=== PATIENT | female | born 1970 | race African-American/Black ===

== ENCOUNTER 2024-04-21 14:25 | Emergency (ER) | payer SELFPAY ==
[~2024-04-21] VITALS: Ht 165.1 cm; Wt 90.2 kg
--- NOTE | 2024-04-21 16:10 | DVH ---
EXAM: US PELVIC CLINICAL HISTORY: sent from for possible tampone x 10 days. TECHNIQUE: Transabdominal ultrasound of the pelvis with color Doppler flow as clinically indicated. COMPARISON: None Findings: Same-day quantitative beta-hCG is not available. Uterus measures 9.5 x 6.4 x 5.9 cm in size with relatively homogeneous echotexture and normal contour s. There is a 1.9 x 1.6 x 1.9 cm round, hypoechoic lesion in the uterine fundus. Endometrial thickness measures 0.8 cm with smooth contour. Cervix appears grossly unremarkable. Bilateral ovaries not visualized. Trace free fluid in the cul-de-sac. No visualized foreign bodies. Impression: 1. Myomatous uterus grossly unremarkable with endometrial thickness of 0.8 cm. If patient is postmeno pausal, consider endometrial tissue sampling for further evaluation. 2. Bilateral ovaries not visualized. 3. Trace free fluid in the cul de sac, nonspecific.
[2024-04-21 17:02] VITALS: BP 160/88; PULSE 68; RESP 18; TEMP 98.2; O2SAT 100
[2024-04-21 17:09] LABS: Basophils # (auto) 0 10 ^3/uL (0-0.2); Basophils % (auto) 0.5 % (0.0-2.0); Eosinophils # (auto) 0 10 ^3/uL (0-0.8); Eosinophils % (auto) 0.5 % (0.0-7.0); Hematocrit 34.2 % (36.0-46.0); Hemoglobin 11.5 g/dL (12.2-16.2); Lymphocytes # (auto) 2.5 10 ^3/uL (0.4-5.4); Lymphocytes % (auto) 37.7 % (10.0-50.0); Mean Corpuscular Hemoglobin 28.3 pg (28.0-32.0); Mean Corpuscular Hgb Conc. 33.7 g/dL (32.0-36.0); Monocytes # (auto) 0.6 10 ^3/uL (0-1.3); Monocytes % (auto) 8.6 % (0.0-12.0); Neutrophils # (auto) 3.5 10 ^3/uL (1.6-8.6); Neutrophils % (auto) 52.7 % (37.0-80.0); Nucleated Red Blood Cells % 0.1 %; Platelet Count (auto) 274 10^3/uL (140-450); Red Blood Cells 4.08 10^6/uL (4.0-5.20); Red Cell Distribution Width 12.9 % (11.8-14.3); White Blood Cell 6.6 10^3/uL (4.4-10.8)
--- NOTE | 2024-04-21 17:19 | ED.PDOC ---
General HPI Comments 53-year-old female presents for a possible tampon in the vaginal canal. Onset 10 days ago Was seen at urgent care today and was referred to ED for higher level of care No other complaint or concern Denies back pain abdominal pain flank pain dysuria urgency frequency LMP: 2 weeks ago Chief Complaint: Foreign Body Time Seen by MD: 16:23 Primary Care Provider: JUAQUIN Cheatham notes: Nurses Notes, Medications, Allergies Allergies: Coded Allergies: NO KNOWN ALLERGIES (Unverified , 04/21/24) Home Meds Active Scripts Metronidazole Vaginal (Metronidazole Vaginal) 0.75 % Gel, 1 APPLIC VG QPM for 7 Days, #70 GRAMS 30 Refills Prov:GIAN LUNA ANTISQUEAK CHALKER 04/21/24 Information Source: Patient Mode of Arrival: Ambulatory Past Medical History PAST MEDICAL HISTORY: Denies Surgical History: Denies all surgeries EDITOR INDEX History: No Pertinent EDITOR INDEX History Family History Family History: Reviewed,noncontributory to illness Social History Smoker: Non-Smoker Alcohol: Denies ETOH Use Drugs: Denies Drug Use All Other Systems: Reviewed and Negative (Per HPI) Physical Exam General Appearance: No Apparent Distress, Normal HEENT: Normal ENT Inspection, Pharynx Normal, TMs Normal Neck: Full Range of Motion, Non-Tender, Normal, Normal Inspection Respiratory: Chest Non-Tender, Lungs Clear, No Accessory Muscle Use, No Respiratory Distress, Normal Breath Sounds Cardiovascular: No Edema, No JVD, No Murmur, No Gallop, Normal Peripheral Pulses, Regular Rate/Rhythm Breast Exam: Deferred Gastrointestinal: No Organomegaly, Non Tender, No Pulsatile Mass, Normal Bowel Sounds, Soft Genitalia: Deferred Pelvic: No Masses (Pelvic exam normal. Matcher Operator in the room. luis a) Rectal: Deferred Extremities: No calf tenderness, Normal capillary refill, Normal inspection, Normal range of motion, Non-tender, No pedal edema Musculoskeletal : Apperance: Normal Neurologic: Alert, brand inspector II-XII nml as Tested, No Motor Deficits, Normal Affect, Normal Mood, No Sensory Deficits Cerebellar Function: Normal Reflexes: Normal Skin: Dry, Normal Color, Warm Lymphatic: No Adenopathy Was a procedure done? Was a procedure done?: Yes Sedation Sedation?: No Pelvic Exam Vaginal Discharge: White, Other (No FB) Vaginal Lesions: None Vaginal Mass: None Cervix: os closed Differential Diagnosis Kidney stone (Female): Other Urinary Problem (Female): PID, Urolithiasis, UTI, Vaginitis X-Ray, Labs, Meds, VS Vital Signs Date Time Temp Pulse Resp B/P (MAP) Pulse Ox O2 Delivery O2 Flow Rate FiO2 04/21/24 17:02 68 18 100 Room Air 04/21/24 17:02 98.2 68 18 160/88 (112) 100 98.2 04/21/24 14:40 98.2 68 18 160/88 (112) 100 Lab Test 04/21/24 17:16 04/21/24 16:35 Range/Units Vaginal WBC (Wet Prep) Few Vaginal RBC (Wet Prep) Few Vaginal Epithelial Cells (Wet Prep) Few Vaginal Bacteria (Wet Prep) Moderate Vaginal Trichomonas (Wet Prep) Not present Vaginal Yeast (Wet Prep) None seen Vaginal Clue Cells (Wet Prep) Few White Blood Count 6.6 4.4-10.8 10^3/uL Red Blood Count 4.08 4.0-5.20 10^6/uL Hemoglobin 11.5 L 12.2-16.2 g/dL Hematocrit 34.2 L 36.0-46.0 % Mean Corpuscular Volume 84.0 80.0-100.0 fL Mean Corpuscular Hemoglobin 28.3 28.0-32.0 pg Mean Corpuscular Hemoglobin Concent 33.7 32.0-36.0 g/dL Red Cell Distribution Width 12.9 11.8-14.3 % Platelet Count 274 140-450 10^3/uL Mean Platelet Volume 8.4 6.9-10.8 fL Neutrophils (%) (Auto) 52.7 37.0-80.0 % Lymphocytes (%) (Auto) 37.7 10.0-50.0 % Monocytes (%) (Auto) 8.6 0.0-12.0 % Eosinophils (%) (Auto) 0.5 0.0-7.0 % Basophils (%) (Auto) 0.5 0.0-2.0 % Neutrophils # (Auto) 3.5 1.6-8.6 10 ^3/uL Lymphocytes # (Auto) 2.5 0.4-5.4 10 ^3/uL Monocytes # (Auto) 0.6 0-1.3 10 ^3/uL Eosinophils # (Auto) 0 0-0.8 10 ^3/uL Basophils # (Auto) 0 0-0.2 10 ^3/uL Nucleated Red Blood Cells 0.1 % Sodium Level 141 136-145 mmol/L Potassium Level 3.5 3.5-5.1 mmol/L Chloride Level 108 H 98-107 mmol/L Carbon Dioxide Level 28 20-31 mmol/L Anion Gap 5 5-15 Blood Urea Nitrogen 7 L 9-23 mg/dL Creatinine 0.87 0.550-1.02 mg/dL Glomerular Filtration Rate Calc 80 >90 mL/min BUN/Creatinine Ratio 8.0 L 10.0-20.0 Serum Glucose 93 74-106 mg/dL Calcium Level 10.0 8.7-10.4 mg/dL PATIENT: SUNDAY CHRISTIANSONT: [id number]: [id number] : 1970 LOC: ER ROOM / BED: / AGE / SEX: 53 / F ADM STATUS: REG ER SERVICE [id number] ORDERING PHYSICIAN: GIAN LUNA NP PROCEDURE(s): PELUS - PELVIC REASON: sent from for possible tampone x 10 days. ORDER NUMBER(s): [id number], ACCESSION NUMBER(s): [id number] EXAM: US PELVIC CLINICAL HISTORY: sent from for possible tampone x 10 days. TECHNIQUE: Transabdominal ultrasound of the pelvis with color Doppler flow as clinically indicated. COMPARISON: None Findings: Same-day quantitative beta-hCG is not available. Uterus measures 9.5 x 6.4 x 5.9 cm in size with relatively homogeneous echotexture and normal contours. There is a 1.9 x 1.6 x 1.9 cm round, hypoechoic lesion in the uterine fundus. Endometrial thickness measures 0.8 cm with smooth contour. Cervix appears grossly unremarkable. Bilateral ovaries not visualized. Trace free fluid in the cul-de-sac. No visualized foreign bodies. Impression: 1. Myomatous uterus grossly unremarkable with endometrial thickness of 0.8 cm. If patient is postmenopausal, consider endometrial tissue sampling for further evaluation. 2. Bilateral ovaries not visualized. 3. Trace free fluid in the cul de sac, nonspecific. ATED BY: BEVERLEY PEREZ DO DICTATED DATE/TIME: 04/21/24 7091 SIGNED BY: BEVERLEY PEREZ DO SIGNED DATE/TIME: 04/21/24 1608 CC: X-Ray, Labs, Meds, VS Comment ROS physical examination imaging and labs were ordered to rule out serious pathology. Pelvic ultrasound shows 1. Myomatous uterus grossly unremarkable with endometrial thickness of 0.8 cm. If patient is postmenopausal, consider endometrial tissue sampling for further evaluation. 2. Bilateral ovaries not visualized. 3. Trace free fluid in the cul de sac, nonspecific. Patient still has monthly menstrual cycles thus it was advised she follow up with her PCP and Ob for continuity of care Copy of ultrasound was provided Wet mount shows BV positive. Medication Rx. On reevaluation, patient had symptomatic improvement. Patient is stable for discharge at this time. External notes reviewed. Test results and diagnostic imaging interpreted. All diagnostic findings, discharge care, education and instructions provided Follow-up with PCP in 2 to 3 days Patient verbalized understanding and agreed to treatment plan Vital signs stable, afebrile, no acute distress noted Patient ambulatory with strong steady gait Advised to return precautions for any new or worsening symptoms, return to ER immediately for re-evaluation Patient is aware that the purpose of this visit was for an acute medical emergency requiring emergent stabilization. Chronic conditions, including malignancies have not been ruled out. Patient is instructed to follow up with PCP as directed and discharge instructions for continued care and workup. If unable to arrange follow-up, patient is to return to the emergency department for reassessment. Patient (parent or legal guardian if applicable) was given verbal and written discharge instructions and acknowledges understanding. Time of 1ST Reevaluation: 17:16 Reevaluation 1ST: Improved Patient Education/Counseling: Diagnosis, Treatment Family Education/Counseling: Diagnosis, Treatment Departure 1 Departure Time of Disposition: 18:06 Impression: Primary Impression: Vaginal foreign body Qualified Codes: T19.2XXA - Foreign body in vulva and vagina, initial encounter Additional Impression: Bacterial vaginosis Disposition: HOME / SELF CARE / HOMELESS Condition: Stable e-Prescriptions Metronidazole Vaginal (Metronidazole Vaginal) 0.75 % Gel 1 APPLIC VG QPM for 7 Days, #70 GRAMS 30 Refills Prov: GIAN LUNA NP 04/21/24 Discharged With: Self Critical Care Note Critical Care Time?: No Stability Stability form required: No Heart Score Heart Score: Heart Score Response (Comments) Value History N/A 0 EKG N/A 0 Age N/A 0 Risk Factors N/A 0 Troponin N/A 0 Total 0 GIAN LUNA NP Apr 21, 2024 17:19
[2024-04-21 17:23] LABS: Chloride 108 mmol/L (98-107); Potassium 3.5 mmol/L (3.5-5.1); Sodium 141 mmol/L (136-145)
[2024-04-21 17:24] LABS: Anion Gap 5 (5-15); Carbon Dioxide 28 mmol/L (20-31)
[2024-04-21 17:29] LABS: Blood Urea Nitrogen 7 mg/dL (9-23); Glucose 93 mg/dL (74-106)
[2024-04-21 17:44] LABS: Vaginal Bacteria Moderate; Vaginal Clue Cells Few; Vaginal Epithelial Cells Few; Vaginal Trichomonas Not Present
[2024-04-21] MEDS ORDERED: METR0.7511 VG (18:07)
== END 2024-04-21 18:18 | disposition home or self-care (01) ==
LOC: ER 14:25
DX: T19.2XXA Foreign body in vulva and vagina, initial encounter (principal); B96.89 Other specified bacterial agents as the cause of diseases classified elsewhere; Z79.899 Other long term (current) drug therapy; X58.XXXA Exposure to other specified factors, initial encounter; Y93.89 Activity, other specified; Y92.89 Other specified places as the place of occurrence of the external cause; Y99.8 Other external cause status
CPT/HCPCS: 36415; 76856; 80048; 85025; 87210

== ENCOUNTER 2024-09-10 07:25 | Emergency (ER) | payer MEDICAID ==
[~2024-09-10] VITALS: Ht 165.1 cm; Wt 88.4 kg
[~2024-09-10 07:25] MED LIST: METR0.7511 VG
[2024-09-10 07:41] VITALS: TEMP 97.9
[2024-09-10] MEDS: cloNIDine HCL 0.1 MG TAB PO ONE (07:58)
[2024-09-10 08:03] VITALS: PULSE 84; RESP 16; O2SAT 98
--- NOTE | 2024-09-10 08:14 | ED.PDOC ---
History of Present Illness HPI Comments 54F presents to the ER w/ her 2 underage daughters and w/ prior Hx of x3 and Cholecystectomy which all may be associated to the c/c of ABD pain. Pt reports on having ABD pain and back pain for 3 days w/ /D. Pt notes the ABD pain being in the epigastric region. Pt's BP in triage was 178/107 and states that she has been in a lot of stress. PMHx of HTN. SHx of Cyst Removal. Denies chills, fever, N/V, SOB, CP no other associated symptoms, modifiers, recent injuries or sick contacts at this time. Chief Complaint: Abdominal Pain Time Seen by MD: 07:55 Primary Care Provider: JUAQUIN Cheatham Notes: Nurses Notes, Medications, Allergies Allergies: Coded Allergies: NO KNOWN ALLERGIES (Unverified , 04/21/24) Home Meds Active Scripts Metronidazole Vaginal (Metronidazole Vaginal) 0.75 % Gel, 1 APPLIC VG QPM for 7 Days, #70 GRAMS 30 Refills Prov:GIAN LUNA ROTARY DRIER 04/21/24 Information Source: Patient Mode of Arrival: Ambulatory Severity: Moderate Timing: Days Duration: Since onset Prehospital treatment: None Past Medical History PAST MEDICAL HISTORY: HTN Surgical History: Cholecystectomy, (x3) Surgical History (Other): Cyst Removal Sx MATE SHIP History: No Pertinent MATE SHIP History Family History Family History: Reviewed,noncontributory to illness, Unknown Social History Smoker: Non-Smoker Alcohol: Denies ETOH Use Drugs: Denies Drug Use Lives In: Home Constitutional: denies: chills, diaphoresis, fatigue, fever, malaise, sweats, weakness, others EENTM: denies: blurred vision, double vision, ear bleeding, ear discharge, ear drainage, ear pain, ear ringing, eye pain, eye redness, hearing loss, mouth pain, mouth swelling, nasal discharge, nose bleeding, nose congestion, nose pain, photophobia, tearing, throat pain, throat swelling, voice changes, others Respiratory: denies: cough, hemoptysis, orthopnea, SOB at rest, shortness of breath, SOB with excertion, stridor, wheezing, others Cardiovascular: denies: chest pain, dizzy spells, diaphoresis, Dyspnea on exertion, edema, irregular heart beat, left arm pain, lightheadedness, palpitations, PND, syncope, others Gastrointestinal: reports: abdominal pain, diarrhea; denies: abdomen distended, blood streaked bowels, constipated, dysphagia, difficulty swallowing, hematemesis, melena, nausea, poor appetite, poor fluid intake, rectal bleeding, rectal pain, vomiting, others Genitourinary: denies: abnormal vagina bleeding, burning, dyspareunia, dysuria, flank pain, frequency, hematuria, incontinence, pain, , vagina discharge, urgency, others Neurological: denies: dizziness, fainting, headache, left sided numbness, left sided weakness, numbness, paresthesia, pre-existing deficit, right sided numbn ess, right sided weakness, seizure, speech problems, tingling, tremors, weakness, others Musculoskeletal: reports: back pain; denies: gout, joint pain, joint swelling, muscle pain, muscle stiffness, neck pain, others Integumetry: denies: bruises, change in color, change in hair/nails, dryness, laceration, lesions, lumps, rash, wounds, others Allergic/Immunocompromised: denies: Difficulty Healing, Frequent Infections, Hives, Itching, others Hematologic/Lymphatic: denies: anemia, blood clots, easy bleeding, easy bruising, swollen glands, others Endocrine: denies: excessive hunger, excessive sweating, excessive thirst, excessive urination, flushing, intolerance to cold, intolerance to heat, unexplained weight gain, unexplained weight loss, others Psychiatric: denies: anxiety, bipolar disorder, depression, hopeless, panic disorder, schizophrenia, sleepless, suicidal, others All Other Systems: Reviewed and Negative Physical Exam General Appearance: Moderate Distress, Normal HEENT: Normal ENT Inspection, Pharynx Normal, TMs Normal Neck: Full Range of Motion, Non-Tender, Normal, Normal Inspection Respiratory: Chest Non-Tender, Lungs Clear, No Accessory Muscle Use, No Respiratory Distress, Normal Breath Sounds Cardiovascular: No Edema, No JVD, No Murmur, No Gallop, Normal Peripheral Pulses, Regular Rate/Rhythm Breast Exam: Deferred Gastrointestinal: No Organomegaly, Non Tender, No Pulsatile Mass, Normal Bowel Sounds, Soft Genitalia: Deferred Pelvic: Deferred Rectal: Deferred Extremities: No calf tenderness, Normal capillary refill, Normal inspection, Normal range of motion, Non-tender, No pedal edema Musculoskeletal : Apperance: Normal Neurologic: Alert, floral merchandiser II-XII nml as Tested, No Motor Deficits, Normal Affect, Normal Mood, No Sensory Deficits Cerebellar Function: Normal Reflexes: Normal Skin: Dry, Normal Color, Warm Peripheral Pulses: 3+ Radial (R), 3+ Radial (L) Lymphatic: No Adenopathy Was a procedure done? Was a procedure done?: No Differential Dx Considerations may include: Anemia Electrolyte imbalance X-Ray, Labs, Meds, VS Vital Signs Date Time Temp Pulse Resp B/P (MAP) Pulse Ox O2 Delivery O2 Flow Rate FiO2 09/10/24 09:05 77 15 118/74 (89) 99 09/10/24 09:05 118/74 09/10/24 08:03 84 16 98 Room Air* 0 21 09/10/24 07:58 183/109 09/10/24 07:43 61 09/10/24 07:41 97.9 75 20 178/107 (130) 99 97.9 Lab Test 09/10/24 08:22 09/10/24 08:00 Range/Units White Blood Count 4.4 4.4-10.8 10^3/uL Red Blood Count 4.39 4.0-5.20 10^6/uL Hemoglobin 11.6 L 12.2-16.2 g/dL Hematocrit 35.4 L 36.0-46.0 % Mean Corpuscular Volume 80.8 80.0-100.0 fL Mean Corpuscular Hemoglobin 26.4 L 28.0-32.0 pg Mean Corpuscular Hemoglobin Concent 32.7 32.0-36.0 g/dL Red Cell Distribution Width 15.8 H 11.8-14.3 % Platelet Count 281 140-450 10^3/uL Mean Platelet Volume 8.3 6.9-10.8 fL Neutrophils (%) (Auto) 58.2 37.0-80.0 % Lymphocytes (%) (Auto) 34.1 10.0-50.0 % Monocytes (%) (Auto) 7.0 0.0-12.0 % Eosinophils (%) (Auto) 0.3 0.0-7.0 % Basophils (%) (Auto) 0.4 0.0-2.0 % Neutrophils # (Auto) 2.6 1.6-8.6 10 ^3/uL Lymphocytes # (Auto) 1.5 0.4-5.4 10 ^3/uL Monocytes # (Auto) 0.3 0-1.3 10 ^3/uL Eosinophils # (Auto) 0 0-0.8 10 ^3/uL Basophils # (Auto) 0 0-0.2 10 ^3/uL Nucleated Red Blood Cells 0.0 % Sodium Level 141 136-145 mmol/L Potassium Level 3.6 3.5-5.1 mmol/L Chloride Level 107 98-107 mmol/L Carbon Dioxide Level 29 20-31 mmol/L Anion Gap 5 5-15 Blood Urea Nitrogen 10 9-23 mg/dL Creatinine 0.81 0.550-1.02 mg/dL Glomerular Filtration Rate Calc 87 >90 mL/min BUN/Creatinine Ratio 12.3 10.0-20.0 Serum Glucose 96 74-106 mg/dL Calcium Level 9.8 8.7-10.4 mg/dL Troponin I High Sensitivity < 3 L </=34 ng/L Urine Color Light-yellow Yellow Urine Clarity Clear Clear Urine pH 5.5 5.0-9.0 Urine Specific [place] 1.014 1.001-1.035 Urine Protein Negative Negative Urine Ketones Negative Negative Urine Blood Negative Negative /uL Urine Nitrite Negative Negative Urine Bilirubin Negative Negative Urine Urobilinogen Normal Negative mg/dL Urine Leukocyte Esterase Negative Negative /uL Urine RBC <1 0 - 4 /hpf Urine Microscopic WBC 2 0-5 /HPF Urine Squamous Epithelial Cells Few <5 /hpf Urine Bacteria Few H None Seen /hpf Urine Mucus Few None Seen Urine Glucose Normal Normal mg/dL Current Medications Medications (Trade) Dose Ordered Sig/Kartik Route Start Time Stop Time Status Last Admin Clonidine HCl (Catapres Tablet) 0.2 mg ONCE ONCE PO 09/10/24 07:45 09/10/24 07:46 DC 09/10/24 07:58 Lorazepam (Ativan Tablet) 1 mg ONCE ONCE PO 09/10/24 08:15 09/10/24 08:16 DC 09/10/24 08:30 Patient alert. Anxious. Has been going through a lot in her life. Vitals stable. Answering all questions. Abdomen is soft nontender. No leg swelling. No shortness a breath. Urinalysis within normal limits. Cardiac marker within normal limits. WBC within normal limits. Blood pressure normalized after given clonidine. She was given Ativan. EKG reviewed does not show any acute changes. Explained to the patient her condition. Was told to follow up with her primary care physician. Was told to come back if there is any problem. Time of 1ST Reevaluation: 08:25 Reevaluation 1ST: Improved Patient Education/Counseling: Diagnosis, Treatment, Prognosis Family Education/Counseling: Diagnosis, Treatment, Prognosis, Other (Daughters) Departure 1 Departure Time of Disposition: 09:21 Impression: Primary Impression: Hypertensive urgency Additional Impression: Anxiety Disposition: 01 HOME / SELF CARE / HOMELESS Condition: Good e-Prescriptions Lorazepam (ATIVAN TABLET) 0.5 Mg Tb 1 TAB PO DAILY for 5 Days, #5 TAB Prov: EDUARDO GARCIA MD 09/10/24 Discharged With: Self Critical Care Note Critical Care Time?: No Stability Stability form required: No Heart Score Heart Score: Heart Score Response (Comments) Value History Slightly Suspicious 0 EKG Normal 0 Age 45-64 1 Risk Factors 1 or 2 risk factors 1 Troponin Normal limit 0 Total 2 I personally scribed for EDUARDO GARCIA MD ([email or web address]) on 09/10/24 at 08:14. Electronically submitted by Ant Ochoa ([email or web address]). EDUARDO GARCIA MD Sep 10, 2024 08:14
[2024-09-10] MEDS: LORazepam 0.5 MG TAB PO ONE (08:30)
[2024-09-10 08:37] LABS: Basophils # (auto) 0 10 ^3/uL (0-0.2); Basophils % (auto) 0.4 % (0.0-2.0); Eosinophils # (auto) 0 10 ^3/uL (0-0.8); Eosinophils % (auto) 0.3 % (0.0-7.0); Hematocrit 35.4 % (36.0-46.0); Hemoglobin 11.6 g/dL (12.2-16.2); Lymphocytes # (auto) 1.5 10 ^3/uL (0.4-5.4); Lymphocytes % (auto) 34.1 % (10.0-50.0); Mean Corpuscular Hemoglobin 26.4 pg (28.0-32.0); Mean Corpuscular Hgb Conc. 32.7 g/dL (32.0-36.0); Mean Corpuscular Volume 80.8 fL (80.0-100.0); Monocytes # (auto) 0.3 10 ^3/uL (0-1.3); Neutrophils # (auto) 2.6 10 ^3/uL (1.6-8.6); Neutrophils % (auto) 58.2 % (37.0-80.0); Platelet Count (auto) 281 10^3/uL (140-450); Red Blood Cells 4.39 10^6/uL (4.0-5.20); Red Cell Distribution Width 15.8 % (11.8-14.3); White Blood Cell 4.4 10^3/uL (4.4-10.8)
[2024-09-10 08:38] LABS: Urine Bacteria FEW /hpf (None Seen); Urine Blood Negative /uL (Negative); Urine Clarity Clear (Clear); Urine Color Light-Yellow (Yellow); Urine Mucus FEW (None Seen); Urine Protein, UAD Negative (Negative); Urine Specific Gravity 1.014 (1.001-1.035); Urine Squamous Epithelial Cell FEW /hpf (<5); Urine Urobilinogen Normal (Negative); Urine WBC 2 /HPF (0-5); Urine pH 5.5 (5.0-9.0)
[2024-09-10 08:41] LABS: Chloride 107 mmol/L (98-107); Potassium 3.6 mmol/L (3.5-5.1); Sodium 141 mmol/L (136-145)
[2024-09-10 08:42] LABS: Anion Gap 5 (5-15); Calcium 9.8 mg/dL (8.7-10.4); Carbon Dioxide 29 mmol/L (20-31)
[2024-09-10 08:47] LABS: BUN/Creatinine Ratio 12.3 (10.0-20.0); Blood Urea Nitrogen 10 mg/dL (9-23); Glucose 96 mg/dL (74-106)
[2024-09-10 09:05] VITALS: BP 118/74; PULSE 77; RESP 15; O2SAT 99
[2024-09-10] MEDS ORDERED: LORA-1121 PO (09:22)
--- NOTE | 2024-09-10 18:48 | ECG ---
[facility] Test Date: 2024-09-10 Test Time: 07:43:59 Pat Name: CYNDY CHRISTIANSON Department: ER Room: Gender: F Tube Roller: LUDY : 1970 Requested By: EDUARDO GARCIA Order Number: [id number] Reading MD: Greg Pan Measurements Intervals [place] Rate: 61 P: 48 AR: 133 QRS: 55 QRSD: 84 T: 50 QT: 413 QTc: 416 Interpretive Statements Sinus rhythm Baseline wander in lead(s) V4 Electronically Signed On 09-11-2024 14:10:27 PDT by Greg Pan Please click the below link to view image of tracing.
== END 2024-09-10 09:39 | disposition home or self-care (01) ==
LOC: ER 07:29
DX: I16.0 Hypertensive urgency (principal); F41.9 Anxiety disorder, unspecified; I10 Essential (primary) hypertension; Z90.49 Acquired absence of other specified parts of digestive tract; Z79.899 Other long term (current) drug therapy
CPT/HCPCS: 36415; 80048; 81001; 84484; 85025; 93005

== ENCOUNTER 2025-03-16 09:08 | Outpatient (CLI) | payer MEDICAID ==
[~2025-03-16 09:08] MED LIST changes: +LORA-1121 PO
[2025-03-16 09:44] LABS: Hematocrit 33.9 % (36.0-46.0); Hemoglobin 11.5 g/dL (12.2-16.2); Mean Corpuscular Hemoglobin 27.7 pg (28.0-32.0); Mean Corpuscular Volume 81.8 fL (80.0-100.0); Nucleated Red Blood Cells % 0.1 %
[2025-03-16 09:58] LABS: Iron 66.0 ug/dL (50-170)
[2025-03-16 09:59] LABS: Triglycerides 73 mg/dL (< 150)
[2025-03-16 10:01] LABS: Cholesterol 170 mg/dL (< 200); HDL Cholesterol 62 mg/dL (40-59); Total Iron Binding Capacity 338.0 ug/dL (250-425)
[2025-03-16 10:23] LABS: Ferritin 7.9 ng/mL (10-291)
== END 2025-03-16 17:00 | disposition home or self-care (01) ==
LOC: LAB 09:08
PROVIDERS: ATTEND Licensed Practical Nurse
DX: E55.9 Vitamin D deficiency, unspecified (principal); Z13.29 Encounter for screening for other suspected endocrine disorder; Z13.1 Encounter for screening for diabetes mellitus; Z00.01 Encounter for general adult medical examination with abnormal findings
CPT/HCPCS: 36415; 80061; 82043; 82306; 82607; 82728; 82746; 83036; 83540; 83550; 84443; 85025

== ENCOUNTER 2025-03-18 11:09 | Outpatient (CLI) | payer MEDICAID ==
[2025-03-18 12:00] LABS: Albumin 4.3 g/dL (3.2-4.8); Alkaline Phosphatase 50 U/L (46-116); Anion Gap 8 (5-15); BUN/Creatinine Ratio 9.9 (10.0-20.0); Bilirubin, Total 0.7 mg/dL (0.2-1.0); Blood Urea Nitrogen 9 mg/dL (9-23); Calcium 9.3 mg/dL (8.7-10.4); Chloride 104 mmol/L (98-107); Glucose 83 mg/dL (74-106); Potassium 3.7 mmol/L (3.5-5.1); Sodium 143 mmol/L (136-145); Total Protein 7.2 g/dL (5.7-8.2)
[2025-03-18 12:04] LABS: Alanine Aminotransferase < 9 U/L (7-40); Carbon Dioxide 31 mmol/L (20-31)
== END 2025-03-19 17:00 | disposition home or self-care (01) ==
LOC: LAB 11:09
PROVIDERS: ATTEND Licensed Practical Nurse
DX: I10 Essential (primary) hypertension (principal)
CPT/HCPCS: 36415; 80053; 82274

== ENCOUNTER 2025-04-19 21:59 | Emergency (ER) | payer MEDICAID ==
[~2025-04-19] VITALS: Ht 167.6 cm; Wt 52.7 kg
--- NOTE | 2025-04-19 23:04 | DVH ---
CHEST RADIOGRAPH Indication: chest pain Technique: Single frontal view of the chest was obtained COMPARISON: None FINDINGS: Lines and Tubes: None Lungs: Clear Pleura: No pleural effusion or pneumothorax. Cardiomediastinal contours: Unremarkable IMPRESSION: No abnormality demonstrated.
[2025-04-19 23:18] LABS: Hematocrit 34.0 % (36.0-46.0); Hemoglobin 11.4 g/dL (12.2-16.2); Mean Corpuscular Hemoglobin 27.9 pg (28.0-32.0); Mean Corpuscular Volume 82.9 fL (80.0-100.0); Nucleated Red Blood Cells % 0.0 %
[2025-04-19 23:37] LABS: Alanine Aminotransferase 13 U/L (7-40); Albumin 4.3 g/dL (3.2-4.8); Alkaline Phosphatase 52 U/L (46-116); Anion Gap 7 (5-15); BUN/Creatinine Ratio 13.5 (10.0-20.0); Blood Urea Nitrogen 12 mg/dL (9-23); Calcium 9.3 mg/dL (8.7-10.4); Carbon Dioxide 29 mmol/L (20-31); Chloride 104 mmol/L (98-107); Glucose 96 mg/dL (74-106); Potassium 3.5 mmol/L (3.5-5.1); Sodium 140 mmol/L (136-145); Total Protein 7.4 g/dL (5.7-8.2)
[2025-04-19 23:38] LABS: Bilirubin, Total 0.6 mg/dL (0.2-1.0)
--- NOTE | 2025-04-19 23:41 | ED.PDOC ---
History of Present Illness HPI Comments 54-year-old female presents with chief complaint of hypertension. Patient endorses on her blood pressure being elevated and having associated chest pain, headaches, and dizziness since April 15, 2025 after she had her blood pressure prescription changed from olmesartan to losartan. She denies having any shortness of breath, lightheadedness, vision or speech changes, or further acute symptoms. Chief Complaint: High Blood Pressure Time Seen by MD: 23:20 Primary Care Provider: JUAQUIN Cheatham Notes: Nurses Notes, Medications, Allergies Allergies: Coded Allergies: NO KNOWN ALLERGIES (Unverified , 04/21/24) Home Meds Active Scripts Amlodipine Besylate (Amlodipine Besylate) 5 Mg Tab, 1 TAB PO DAILY for 90 Days, #90 TAB 3 Refills Prov:MARCIANO CARDONA MD 04/20/25 Lorazepam (ATIVAN TABLET) 0.5 Mg Tb, 1 TAB PO DAILY for 5 Days, #5 TAB Prov:EDUARDO GARCIA MD 09/10/24 Metronidazole Vaginal (Metronidazole Vaginal) 0.75 % Gel, 1 APPLIC VG QPM for 7 Days, #70 GRAMS 30 Refills Prov:GIAN LUNA NP 04/21/24 Information Source: Patient Mode of Arrival: Ambulatory Severity: Moderate Timing: Days Duration: Since onset Prehospital treatment: None Past Medical History PAST MEDICAL HISTORY: HTN Surgical History: Cholecystectomy, HYDROBLASTER History: No Pertinent HYDROBLASTER History Family History Family History: Reviewed,noncontributory to illness, Unknown Social History Smoker: Non-Smoker Alcohol: Denies ETOH Use Drugs: Denies Drug Use Lives In: Home All Other Systems: Reviewed and Negative (Comprehensive review of systems are negative unless otherwise stated in HPI) Physical Exam General Appearance: No Apparent Distress, Normal HEENT: Normal ENT Inspection, Pharynx Normal, TMs Normal Neck: Full Range of Motion, Non-Tender, Normal, Normal Inspection Respiratory: Chest Non-Tender, Lungs Clear, No Accessory Muscle Use, No R espiratory Distress, Normal Breath Sounds Cardiovascular: No Edema, No JVD, No Murmur, No Gallop, Normal Peripheral Pulses, Regular Rate/Rhythm Breast Exam: Deferred Gastrointestinal: No Organomegaly, Non Tender, No Pulsatile Mass, Normal Bowel Sounds, Soft Genitalia: Deferred Pelvic: Deferred Rectal: Deferred Extremities: No calf tenderness, Normal capillary refill, Normal inspection, Normal range of motion, Non-tender, No pedal edema Musculoskeletal : Apperance: Normal Neurologic: Alert, supply officer II-XII nml as Tested, No Motor Deficits, Normal Affect, Normal Mood, No Sensory Deficits Cerebellar Function: Normal Reflexes: Normal Skin: Dry, Normal Color, Warm Lymphatic: No Adenopathy Was a procedure done? Was a procedure done?: No EKG EKG : Pulse Rate (adult): 58 [place]: Normal Cardiac Rhythm: NSR Block: None Hypertrophy: None ST: Normal Differential Dx Considerations may include: Hypertensive emergency, inappropriate medication dosage, inappropriate medication, mi, PE, ACS, CAD, URI, pneumonia, angina, anxiety, gastritis, patient headache, migraines, among others X-Ray, Labs, Meds, VS Vital Signs Date Time Temp Pulse Resp B/P (MAP) Pulse Ox O2 Delivery O2 Flow Rate FiO2 04/20/25 02:22 60 19 100 Room Air 04/20/25 02:22 182/99 04/20/25 02:22 97.6 60 19 182/99 (126) 100 97.6 04/19/25 23:41 58 04/19/25 22:15 58 04/19/25 22:11 97.7 78 18 111/82 100 97.7 Lab Test 04/19/25 23:57 04/19/25 22:57 Range/Units Troponin I High Sensitivity < 3 L < 3 L </=34 ng/L White Blood Count 5.1 4.4-10.8 10^3/uL Red Blood Count 4.11 4.0-5.20 10^6/uL Hemoglobin 11.4 L 12.2-16.2 g/dL Hematocrit 34.0 L 36.0-46.0 % Mean Corpuscular Volume 82.9 80.0-100.0 fL Mean Corpuscular Hemoglobin 27.9 L 28.0-32.0 pg Mean Corpuscular Hemoglobin Concent 33.6 32.0-36.0 g/dL Red Cell Distribution Width 14.1 11.8-14.3 % Platelet Count 229 140-450 10^3/uL Mean Platelet Volume 8.0 6.9-10.8 fL Neutrophils (%) (Auto) 48.7 37.0-80.0 % Lymphocytes (%) (Auto) 43.1 10.0-50.0 % Monocytes (%) (Auto) 7.2 0.0-12.0 % Eosinophils (%) (Auto) 0.5 0.0-7.0 % Basophils (%) (Auto) 0.5 0.0-2.0 % Neutrophils # (Auto) 2.5 1.6-8.6 10 ^3/uL Lymphocytes # (Auto) 2.2 0.4-5.4 10 ^3/uL Monocytes # (Auto) 0.4 0-1.3 10 ^3/uL Eosinophils # (Auto) 0 0-0.8 10 ^3/uL Basophils # (Auto) 0 0-0.2 10 ^3/uL Nucleated Red Blood Cells 0.0 % Sodium Level 140 136-145 mmol/L Potassium Level 3.5 3.5-5.1 mmol/L Chloride Level 104 98-107 mmol/L Carbon Dioxide Level 29 20-31 mmol/L Anion Gap 7 5-15 Blood Urea Nitrogen 12 9-23 mg/dL Creatinine 0.89 0.550-1.02 mg/dL Glomerular Filtration Rate Calc 77 >90 mL/min BUN/Creatinine Ratio 13.5 10.0-20.0 Serum Glucose 96 74-106 mg/dL Calcium Level 9.3 8.7-10.4 mg/dL Total Bilirubin 0.6 0.2-1.0 mg/dL Aspartate Amino Transferase (AST) 17 13-40 U/L Alanine Aminotransferase (ALT) 13 7-40 U/L Alkaline Phosphatase 52 46-116 U/L B-Type Natriuretic Peptide 10.64 0-100 pg/mL Total Protein 7.4 5.7-8.2 g/dL Albumin 4.3 3.2-4.8 g/dL Current Medications Medications (Trade) Dose Ordered Sig/Kartik Route Start Time Stop Time Status Last Admin Clonidine HCl (Catapres Tablet) 0.2 mg ONCE ONCE PO 04/20/25 02:15 04/20/25 02:16 DC 04/20/25 02:[address] [address] Ph: [phone] DIAGNOSTIC IMAGING Diagnostic Imaging Report : [id number] Signed PATIENT: CYNDY CHRISTIANSON ACCT: [id number] UNIT: [id number] : 1970 LOC: ER ROOM / BED: / AGE / SEX: 54 / F ADM STATUS: REG ER SERVICE 40 ORDERING PHYSICIAN: MARCIANO CARDONA MD PROCEDURE(s): CXR1 - CHEST XRAY 1 VIEW REASON: chest pain ORDER NUMBER(s): [id number], ACCESSION NUMBER(s): [id number] CHEST RADIOGRAPH Indication: chest pain Technique: Single frontal view of the chest was obtained COMPARISON: None FINDINGS: Lines and Tubes: None Lungs: Clear Pleura: No pleural effusion or pneumothorax. Cardiomediastinal contours: Unremarkable IMPRESSION: No abnormality demonstrated. ATED BY: JARERD MSEA MD DICTATED DATE/TIME: 04/19/252301 SIGNED BY: JARRED MESA MD SIGNED DATE/TIME: 04/19/252301 CC: Time of 1ST Reevaluation: 23:50 Reevaluation 1ST: Unchanged Patient Education/Counseling: Diagnosis, Treatment, Need For Follow Up Family Education/Counseling: No Family Present SEPSIS Sepsis Screen Date sepsis recognized/suspect: Apr 19, 2025 Time Sepsis recognized/suspect: 2212 Recent Procedure: No On Antibiotic Therapy: No Respiratory Rate >20: No Heart Rate >90: No Temp<36 C (96.8 F) or >38.3 C: No SBP <90 or MAP <65 mmHG: No New Acute Mental Status Change: No Is the patient on CPAP, BIPAP,: No Physician Orders Electrocardigram (04/19/25 22:38) Chest Xray 1 View (04/19/25 22:41) Vital Signs Date Time Temp Pulse Resp B/P (MAP) Pulse Ox O2 Delivery O2 Flow Rate FiO2 04/20/25 02:22 60 19 100 Room Air 04/20/25 02:22 182/99 04/20/25 02:22 97.6 60 19 182/99 (126) 100 97.6 04/19/25 23:41 58 04/19/25 22:15 58 04/19/25 22:11 97.7 78 18 111/82 100 97.7 Laboratory Tests Test 04/19/25 22:57 White Blood Count 5.1 10^3/uL (4.4-10.8) Medications Medications Dose Ordered Sig/Kartik Route Start Time Stop Time Status Last Admin Dose Admin Clonidine HCl 0.2 mg ONCE ONCE PO 04/20/25 02:15 04/20/25 02:16 DC 04/20/25 02:22 Departure 1 Departure Time of Disposition: 01:00 Impression: Primary Impression: Atypical chest pain Disposition: HOME / SELF CARE / HOMELESS Condition: Stable e-Prescriptions Amlodipine Besylate (Amlodipine Besylate) 5 Mg Tab 1 TAB PO DAILY for 90 Days, #90 TAB 3 Refills Prov: MARCIANO CARDONA MD 04/20/25 Discharged With: Self Critical Care Note Critical Care Time?: No Stability Stability form required: No Heart Score Heart Score: Heart Score Response (Comments) Value History Moderate Suspicious 1 EKG Normal 0 Age 45-64 1 Risk Factors 1 or 2 risk factors 1 Troponin Normal limit 0 Total 3 I personally scribed for MARCIANO CARDONA MD ([email or web address]) on 04/19/25 at 23:41. Electronically submitted by Felipe Núñez ([email or web address]). I personally scribed for MARCIANO CARDONA MD ([email or web address]) on 04/19/25 at 23:45. Electronically submitted by Felipe Núñez ([email or web address]). MARCIANO CARDONA MD Apr 19, 2025 23:41
[2025-04-20] MEDS ORDERED: AMLO1TAB22 PO (02:13)
[2025-04-20 02:22] VITALS: BP 182/99; PULSE 60; RESP 19; TEMP 97.6; O2SAT 100
--- NOTE | 2025-04-20 14:15 | ECG ---
[facility] Test Date: 2025-04-19 Test Time: 22:15:53 Pat Name: CYNDY CHRISTIANSON Department: Room: Gender: F Rn Telehealth: ESAU : 1970 Requested By: MARCIANO CARDONA Order Number: [id number] Reading MD: Greg Pan Measurements Intervals [place] Rate: 58 P: 32 AL: 132 QRS: 25 QRSD: 87 T: 24 QT: 431 QTc: 424 Interpretive Statements Sinus rhythm Electronically Signed On 04-21-2025 13:37:57 PST by Greg Pan Please click the below link to view image of tracing.
== END 2025-04-20 02:56 | disposition home or self-care (01) ==
LOC: ER 21:59
DX: R07.89 Other chest pain (principal); I10 Essential (primary) hypertension; Z79.899 Other long term (current) drug therapy; Z90.49 Acquired absence of other specified parts of digestive tract
CPT/HCPCS: 36415; 71045; 80053; 83880; 84484; 85025; 93005